=== PATIENT | female | born 1950 | race Caucasian/White ===

== ENCOUNTER 2018-06-29 09:47 | Emergency (ER) | payer MEDICARE, MEDICAID ==
--- NOTE | 2018-06-29 11:01 | Diagnostic Imaging Report ---
CT abdomen and pelvis without intravenous contrast Indication: Abdominal pain and back pain, rule out aortic aneurysm Comparison: CT abdomen and pelvis performed on 09/10/2013, Technique: Axial images were obtained from the lung bases to the bilateral proximal femurs without IV contrast. Coronal reconstructions were made. total DLP: 621, CTDI13.2 FINDINGS: Hypoventilatory and atelectatic changes of the lung bases are noted. There appears to be partially visualized cardiac stent. Assessment of the solid organs is limited due to lack of IV contrast. No evidence of focal hepatic, splenic, pancreatic, or adrenal lesions. There is severe left renal atrophy with punctate left renal stones. No hydronephrosis. There is an 8 mm low-density lesion of the right kidney too small to characterize but possibly representing a cyst. There is fullness of the right renal collecting system without evidence of nash hydronephrosis. No radiopaque right renal stones identified. Multiple calcifications probably phleboliths are seen throughout the retroperitoneum. There is moderate stool throughout the colon. No bowel obstruction. Distal small bowel stasis is noted. No appendicitis. No evidence of free fluid or free air. Advanced degenerative changes spine are noted with scoliosis. IMPRESSION: Limited exam due to lack of IV contrast. Moderate atherosclerosis is noted. No evidence of an abdominal aortic aneurysm. No evidence of acute appendicitis Distal small bowel stasis. No evidence of small bowel obstruction. Severe left renal atrophy with a few calcifications. Nonspecific fullness of the right renal collecting system without evidence of nash hydronephrosis. No right-sided renal stones identified Subcentimeter low-density lesion of the right kidney too small to characterize but possibly representing a cyst.
--- NOTE | 2018-06-29 11:20 | ED Physician Chart ---
ED Chief Complaint/HPI - Patient Information Date Seen:: 06/29/18 Time Seen:: 10:00 Chief Complaint:: Rash History of Present Illness:: onset x 3 days of a painful rash localized at the right thigh; pt also admits to chronic, dull, MS type LBP for several months; pt denies trauma, LOC, ALOC, AMS, H/As, visual or gait changes, S/T, weakness, dizziness, paresthesias, neck pain, vertigo, cough, C/P, SOB, Abd. Pain, A/N/V/D/C, fever, chills, bleeding, or urinary s/s; pt's last tetanus shot: < 5 years; UTD Allergies:: Allergies Allergy/AdvReac Type Severity Reaction Status Date / Time No Known Allergies Allergy Verified 06/29/18 10:04 Vitals:: Vital Signs - 8 hr 06/29/18 10:06 Temp 97.6 F HR 73 RR 18 BP 163/79 O2 Sat % 97 Historian:: Patient, Family Member Review:: Nurse's Note Reviewed, Old Chart Reviewed ED Review of Systems - Review of Systems General/Constitutional: No fever, No chills, No weight loss, No weakness, No diaphoresis, No edema, No loss of appetite Skin: Skin lesions, Rash, No bruising Head: No headache, No light-headedness Eyes: No loss of vision, No pain, No diplopia ENT: No earache, No nasal drainage, No sore throat, No tinnitus Neck: No neck pain, No swelling, No thyromegaly, No stiffness, No mass noted Cardio Vascular: No chest pain, No palpitations, No PND, No orthopnea, No edema Pulmonary: No SOB, No cough, No sputum, No wheezing GI: No nausea, No vomiting, No diarrhea, No pain, No melena, No hematochezia, No constipation, No hematemesis G/U: No dysuria, No frequency, No hematuria, No nacturia Staff Scientist: No vaginal discharge, No abnormal vaginal bleed, No contraction Musculoskeletal: No bone or joint pain, Back pain, No muscle pain Endocrine: No polyuria, No polydipsia Psychiatric: No prior psych history, No depression, No anxiety, No suicidal ideation, No homicidal ideation, No auditory hallucination, No visual hallucination Hematopoietic: No bruising, No lymphadenopathy Allergic/Immuno: No urticaria, No angioedema Neurological: No syncope, No focal symptoms, No weakness, No paresthesia, No headache, No seizure, No dizziness, No confusion, No vertigo ED Past Medical History - Past Medical History Obtainable: Yes Past Medical History: HTN, Dyslipidemia Family History: HTN Social History: Non Smoker, No Alcohol, No Drug Use, Surgical History: None Psychiatricy History: None Medication: Reviewed Family Medical History - Family Member Mother History Unknown: Yes ED Physical Exam - Physical Examination General/Constitutional: Awake, Well-developed, well-nourished, Alert, No distress, GCS 15, Non-toxic appearing, Ambulatory Head: Atraumatic Eyes: Lids, conjuctiva normal, PERRL, EOMI Skin: Nl inspection, No skin lesions, No ecchymosis, Well hydrated, No lymphadenopathy Other Skin comments:: + Right Thigh [id number], painful lesions cw Herpes Zoster which follow a nerve distribution pattern; good motor and sensory functions; no cellulitis; no FBs; good NV functions ENMT: External ears, nose nl, TM canals nl, Nasal exam nl, Lips, teeth, gums nl , Oropharynx nl, Tonsils nl Neck: Nontender, Full ROM w/o pain, No JVD, No nuchal rigidity, No bruit, No mass, No stridor Other Neck comments:: supple; no meningeal signs; no cervical tenderness; no bruits Respiratory: Nl effort/Exclusion, Clear to Auscultation, No Wheeze/Rhonchi/Rales Cardio Vascular: RRR, No murmur, gallop, rubs, NL S1 S2, Carotid/Femoral/Distal pulses equal bilaterally GI: No tenderness/rebounding/guarding, No organomegaly, No hernia, Normal BS's, Nondistended, No mass/bruits, No McBurney tenderness, Rectum exam nl Other GI comments:: no pulsatile masses; good Bowel Sounds : No CVA tenderness Extremities: No tenderness or effusion, Full ROM, normal strength in all extremities, No edema, Normal digits & nails Neuro/Psych: Alert/oriented, DTR's symmetric, Normal sensory exam, Normal motor strength, Judgement/insight normal, Mood normal, Normal gait, No focal deficits Other Neuro/Psych comments:: no focal signs Misc: Normal back, No paraspinal tenderness Other Misc comments:: + DJD Changes ED Labs/Radiology/EKG Results - Lab Results Comments:: deferred by pt - Radiology Results Comments:: NAD - EKG Interpretations Comments:: deferred by pt ED Septic Shock - . Is Septic Shock (SBP<90, OR Lactate>4 mmol\L) present?: No - <6hrs of presentation: Vital Signs: Vital Signs - 8 hr 06/29/18 10:06 Temp 97.6 F HR 73 RR 18 BP 163/79 O2 Sat % 97 ED Reassessment (Disposition) - Reassessment Reassessment:: pt is asymptomatic upon discharge Reassessment Condition:: Improved - Diagnosis Diagnosis:: Dx: Rash; Painful Rash; Herpes Zoster; Shingles; Low Back Pain; L-S Strain; Sprains and Strains; Osteoarthritis; Hypertension; Hyperlipidemia; Back Pain - Aftercare/Follow up Instructions Aftercare/Follow-Up Instructions:: Counseled pt regarding lab results/diagnosis & need follow up, Refer to Discharge Instructions, Counseled pt & family regarding lab results/diagnosis & need follow up Medication Prescribed:: Rx: Acyclovir 800mg po Five Times per day for 10 days; (#50); Zovirax Ointment: apply to rash bid x 7 to 10 days; Motrin 400mg po tid prn pain; Medrol Dose Pack : take as prescribed/Directed; Skin Care Instructions; Take all medications as prescribed - Patient Disposition Discharge/Transfer:: Home Condition at Disposition:: Stable, Improved (Have Blood Pressure Re-Checked in one Day by PMD; X-Rays Instructions; RTER prn if existing s/s reoccur and/or get worse and/or any other new s/s occur; ACIs given for all above Dx; Refer to Diesel Fitter Mechanic/Orthopedist/Spinal Specialist/Client Solutions Manager BRANDT; F/U with PMD in one day or prn; RTER prn if concerned)
== END 2018-06-29 11:30 | disposition home or self-care (01) ==
LOC: ER 09:47
DX: B02.9 Zoster without complications (principal); S33.9XXA Sprain of unspecified parts of lumbar spine and pelvis, initial encounter; S39.012A Strain of muscle, fascia and tendon of lower back, initial encounter; I10 Essential (primary) hypertension; E78.5 Hyperlipidemia, unspecified; M19.90 Unspecified osteoarthritis, unspecified site; X58.XXXA Exposure to other specified factors, initial encounter; Y93.89 Activity, other specified; Y92.89 Other specified places as the place of occurrence of the external cause; Y99.8 Other external cause status
CPT/HCPCS: 99284; 96372; 74176; J1885; Z7502